=== PATIENT | female | born 1940 | race Caucasian/White ===

== ENCOUNTER 2017-06-13 09:11 | Emergency (ER) | payer MEDICARE | END 2017-06-13 09:41 | disposition home or self-care (01) | LOC: MADERS 09:11 | DX: H10.9 Unspecified conjunctivitis (principal); I10 Essential (primary) hypertension; Z79.899 Other long term (current) drug therapy | CPT/HCPCS: 99283 ==

== ENCOUNTER 2018-07-08 16:19 | Emergency (ER) | payer MEDICARE ==
--- NOTE | 2018-07-08 18:18 | RAD ---
CHEST TWO VIEWS: History: Cough. Comparison: 05-23-14 FINDINGS: Cardiac silhouette and pulmonary vasculature are unremarkable. Mediastinum is midline with aortic jason cification. No confluent airspace consolidation, pneumothorax or pleural fluid are evident. IMPRESSION: Atherosclerosis. No active cardiopulmonary abnormalities are otherwise demonstrated. POS: ANDREAH
== END 2018-07-08 18:13 | disposition home or self-care (01) ==
LOC: MADERS 16:19
DX: J02.9 Acute pharyngitis, unspecified (principal); I10 Essential (primary) hypertension; Z79.899 Other long term (current) drug therapy
CPT/HCPCS: 71046; 87081; 87430; 87804

== ENCOUNTER 2018-12-01 12:48 | Emergency (ER) | payer MEDICARE | END 2018-12-01 14:07 | disposition home or self-care (01) | LOC: MADERS 12:48 | DX: L03.115 Cellulitis of right lower limb (principal); I10 Essential (primary) hypertension; Z79.899 Other long term (current) drug therapy | CPT/HCPCS: 99282 ==

== ENCOUNTER 2019-03-08 07:32 | Emergency (ER) | payer MEDICARE | END 2019-03-08 08:25 | disposition home or self-care (01) | LOC: MADERS 07:32 | DX: S43.401A Unspecified sprain of right shoulder joint, initial encounter (principal); I10 Essential (primary) hypertension; X50.0XXA Overexertion from strenuous movement or load, initial encounter; Z79.899 Other long term (current) drug therapy | CPT/HCPCS: 99283 ==

== ENCOUNTER 2019-03-14 07:29 | Emergency (ER) | payer MEDICARE ==
[2019-03-14] MEDS ORDERED: Dexamethasone 4 MG TAB ONE (08:40)
[2019-03-14] MEDS ORDERED: Acyclovir 200 mg Capsule ONE (08:40)
== END 2019-03-14 09:02 | disposition home or self-care (01) ==
LOC: MADERS 07:29
DX: B02.9 Zoster without complications (principal); I10 Essential (primary) hypertension; Z79.899 Other long term (current) drug therapy
CPT/HCPCS: 99282; J8540

== ENCOUNTER 2019-07-02 10:29 | Emergency (ER) | payer MEDICARE | END 2019-07-02 12:00 | disposition home or self-care (01) | LOC: MADERS 10:29 | DX: B34.9 Viral infection, unspecified (principal); I10 Essential (primary) hypertension; Z79.899 Other long term (current) drug therapy | CPT/HCPCS: 87081; 87430; 87804; 99283 ==

== ENCOUNTER 2020-04-06 16:51 | Emergency (ER) | payer MEDICARE | END 2020-04-06 17:37 | disposition home or self-care (01) | LOC: MADERS 16:51 | DX: M79.672 Pain in left foot (principal); R20.8 Other disturbances of skin sensation; I10 Essential (primary) hypertension | CPT/HCPCS: 99283 ==

== ENCOUNTER 2020-08-21 11:09 | Emergency (ER) | payer MEDICARE | END 2020-08-21 11:43 | disposition home or self-care (01) | LOC: MADERS 11:09 | DX: L03.211 Cellulitis of face (principal); S00.11XA Contusion of right eyelid and periocular area, initial encounter; I10 Essential (primary) hypertension; Z79.899 Other long term (current) drug therapy; W19.XXXA Unspecified fall, initial encounter | CPT/HCPCS: 99283 ==

== ENCOUNTER 2020-11-12 15:59 | Emergency (ER) | payer MEDICARE ==
--- NOTE | 2020-11-12 17:18 | RAD ---
XR Chest Pa Lat STANDARD HISTORY: Cough and congestion COMPARISON: 07/08/2018 FINDINGS: The heart size is normal. The aorta is tortuous. The lungs are well expanded without focal areas of consolidation, pneumothorax or pleural effusions. There are degenerative changes in the spine. IMPRESSION: No radiographic evidence of acute cardiopulmonary process.
[2020-11-13 07:01] LABS: SARS-CoV-2 PCR by NAA DETECTED (NotDetected)
== END 2020-11-12 17:28 | disposition home or self-care (01) ==
LOC: MADERS 15:59
DX: U07.1 COVID-19 (principal); J12.82 Pneumonia due to coronavirus disease 2019; I10 Essential (primary) hypertension; Z79.899 Other long term (current) drug therapy
CPT/HCPCS: 71046; U0003; U0005; 87635

== ENCOUNTER 2021-05-31 11:34 | Emergency (ER) | payer MEDICARE | END 2021-05-31 12:15 | disposition home or self-care (01) | LOC: MADERS 11:34 | DX: K13.0 Diseases of lips (principal); Z79.899 Other long term (current) drug therapy; I10 Essential (primary) hypertension | CPT/HCPCS: 99283 ==

== ENCOUNTER 2021-07-21 10:01 | Emergency (ER) | payer MEDICARE ==
[2021-07-21] MEDS ORDERED: predniSONE 20 MG TAB ONE (12:34)
== END 2021-07-21 12:40 | disposition home or self-care (01) ==
LOC: MADERS 10:01
DX: J02.9 Acute pharyngitis, unspecified (principal); I10 Essential (primary) hypertension
CPT/HCPCS: 87081; 87430; 99283; J7512

== ENCOUNTER 2021-08-20 11:12 | Emergency (ER) | payer MEDICARE ==
[2021-08-20 21:47] LABS: SARS-CoV-2 PCR by NAA Not Detected (NotDetected)
== END 2021-08-20 12:09 | disposition home or self-care (01) ==
LOC: MADERS 11:12
DX: J06.9 Acute upper respiratory infection, unspecified (principal); I10 Essential (primary) hypertension; Z20.822 Contact with and (suspected) exposure to COVID-19; Z79.899 Other long term (current) drug therapy
CPT/HCPCS: 71045; 87804 ×2; U0003; U0005

== ENCOUNTER 2021-08-31 08:22 | Emergency (ER) | payer MEDICARE ==
[2021-09-01 10:48] LABS: SARS-CoV-2 PCR by NAA Not Detected (NotDetected)
== END 2021-08-31 09:00 | disposition home or self-care (01) ==
LOC: MADERS 08:22
DX: B34.9 Viral infection, unspecified (principal); I10 Essential (primary) hypertension
CPT/HCPCS: 87804; 99284; U0003; U0005

== ENCOUNTER 2022-06-21 09:15 | Emergency (ER) | payer MEDICARE | END 2022-06-21 09:56 | disposition home or self-care (01) | LOC: MADERS 09:15 | DX: J06.9 Acute upper respiratory infection, unspecified (principal); J32.9 Chronic sinusitis, unspecified; I10 Essential (primary) hypertension; M06.9 Rheumatoid arthritis, unspecified; Z20.822 Contact with and (suspected) exposure to COVID-19 | CPT/HCPCS: 99283; U0003; U0005 ==

== ENCOUNTER 2022-06-26 09:45 | Emergency (ER) | payer MEDICARE ==
[2022-06-26 10:23] LABS: Bilirubin Negative (Negative); Blood, Urine Small (Negative); Glucose, Urine (Dipstick) Negative (Negative); Ketone, Urine Negative (Negative); Leukocyte Negative (Negative); Nitrite Negative (Negative); Protein, Urine (Dipstick) Negative (Neg-Trace); Specific Gravity, Urine 1.015 (1.005-1.030); Urobilinogen 0.2 mg/dL (Less than 2)
[2022-06-26 10:24] LABS: Clarity Hazy (Clear)
[2022-06-26 10:31] LABS: Bacteria/HPF Rare-Few HPF (None Seen); Squamous Epithelial 0-3 HPF (0-3); WBC/HPF 0-3 HPF (0-3)
== END 2022-06-26 11:00 | disposition home or self-care (01) ==
LOC: MADERS 09:45
DX: R39.15 Urgency of urination (principal); I10 Essential (primary) hypertension; M06.9 Rheumatoid arthritis, unspecified
CPT/HCPCS: 81003; 81015; 87086; 99283

== ENCOUNTER 2022-07-27 19:51 | Emergency (ER) | payer MEDICARE ==
[2022-07-27] MEDS ORDERED: Acetaminophen 500 MG TAB ONE (21:07)
[2022-07-27] MEDS ORDERED: Dexamethasone 4 MG TAB ONE (21:33)
== END 2022-07-27 21:47 | disposition home or self-care (01) ==
LOC: MADERS 19:51
DX: J10.1 Influenza due to other identified influenza virus with other respiratory manifestations (principal); I10 Essential (primary) hypertension; Z79.899 Other long term (current) drug therapy
CPT/HCPCS: 71046; 87804; J8540

== ENCOUNTER 2023-04-10 14:15 | Emergency (ER) | payer MEDICARE, OTHER ==
[~2023-04-10 14:15] MED LIST: Sodium Chloride 0.9% 500 ML BAG ONE
[2023-04-10 16:44] LABS: #Basophils 0.1 thou/uL (0.0-0.2); #Eosinphils 0.1 thou/uL (0.0-0.7); #Lymphocytes 1.8 thou/uL (1.20-3.40); #Neutrophils 5.1 thou/uL (1.40-6.50); %Basophils 1.3 % (0.0-1.0); %Eosinophils 1.4 % (0.0-10.0); %Lymphocytes 22.2 % (21.0-51.0); %Monocytes 12.7 % (0.0-10.0); %Neutrophils 62.6 % (42.0-75.0); Hemoglobin 12.4 g/dL (12.0-16.0); Mean Corpuscular HGB CONC 32.8 g/dL (32.0-36.0); Mean Corpuscular Hemoglobin 29.4 pg (27.0-31.0); Mean Corpuscular Volume 89.9 fl (78.0-98.0); Mean Platelet Volume 8.2 fL (7.4-10.4); Platelet Count 521 10x3/uL (130-400); RBC Distribution Width 12.3 % (11.5-14.5); White Blood Cell (WBC) Count 8.1 10x3/uL (4.8-10.8)
[2023-04-10 16:59] LABS: ALT (SGPT) 14 U/L (8-55); AST (SGOT) 18 U/L (5-34); Albumin 4.4 g/dL (3.4-4.8); Alkaline Phosphatase 85 U/L (40-110); Anion Gap 18 mmol/L (10-20); BUN (Urea Nitrogen) 17 mg/dL (9.8-20.1); Bilirubin, Total 0.4 mg/dL (0.2-1.2); CK (CPK) 67 U/L (29-168); Calc. Creatinine Clearance 0 mL/min (70-130); Calcium 10.4 mg/dL (7.8-10.44); Carbon Dioxide 28 mmol/L (23-31); Chloride 95 mmol/L (98-107); Estimated GFR 60; Globulin 3.6 g/dL (2.4-3.5); Glucose 97 mg/dL (83-110); Potassium 3.7 mmol/L (3.5-5.1); Sodium 137 mmol/L (136-145)
== END 2023-04-10 17:48 | disposition home or self-care (01) ==
LOC: MADERS 14:15
DX: E86.0 Dehydration (principal); I10 Essential (primary) hypertension; Z79.899 Other long term (current) drug therapy
CPT/HCPCS: 80053; 82550; 83880; 85025; 96360; J7030

== ENCOUNTER 2023-08-09 14:16 | Emergency (ER) | payer MEDICARE, OTHER ==
[2023-08-09 15:01] LABS: Bilirubin Negative (Negative); Blood, Urine Small (Negative); Glucose, Urine (Dipstick) Negative (Negative); Ketone, Urine Negative (Negative); Leukocyte Trace (Negative); Nitrite Positive (Negative); Protein, Urine (Dipstick) Negative (Neg-Trace); Urobilinogen 0.2 mg/dL (Less than 2)
[2023-08-09 15:02] LABS: Clarity Hazy (Clear)
[2023-08-09 15:06] LABS: Bacteria/HPF 3+ HPF (None Seen); CAUTI Indications for Culture Dysuria,urgency,freq; RBC/HPF 0-3 HPF (0-3); Urine Culture Reflex Yes Yes
[2023-08-09] MEDS ORDERED: Lidocaine 1% PF 5 ML VIAL ONE (15:13)
[2023-08-09] MEDS ORDERED: cefTRIAXone (ROCEPHIN) 1 GM VIAL ONE (15:13)
== END 2023-08-09 15:32 | disposition home or self-care (01) ==
LOC: MADERS 14:16
DX: N39.0 Urinary tract infection, site not specified (principal); I10 Essential (primary) hypertension; Z79.899 Other long term (current) drug therapy
CPT/HCPCS: 81001; 87077; 87086; 87186; 96372; 99283; J0696

== ENCOUNTER 2023-10-28 10:31 | Emergency (ER) | payer MEDICARE, OTHER ==
[2023-10-28] MEDS ORDERED: Ondansetron PF 4 MG/2 ML Vial ONE (11:14)
[2023-10-28] MEDS ORDERED: Sodium Chloride 0.9% 1,000 ML ONE (11:16)
[2023-10-28 11:28] LABS: ALT (SGPT) 19 U/L (8-55); AST (SGOT) 20 U/L (5-34); Albumin 4.2 g/dL (3.4-4.8); Alkaline Phosphatase 83 U/L (40-110); Anion Gap 18 mmol/L (10-20); BUN (Urea Nitrogen) 30 mg/dL (9.8-20.1); Bilirubin, Total 0.4 mg/dL (0.2-1.2); Calc. Creatinine Clearance 0 mL/min (70-130); Calcium 9.9 mg/dL (7.8-10.44); Carbon Dioxide 26 mmol/L (23-31); Chloride 99 mmol/L (98-107); Estimated GFR 57; Globulin 3.8 g/dL (2.4-3.5); Glucose 100 mg/dL (83-110); Magnesium 1.6 mg/dL (1.6-2.6); Potassium 3.9 mmol/L (3.5-5.1); Sodium 139 mmol/L (136-145)
== END 2023-10-28 12:23 | disposition home or self-care (01) ==
LOC: MADERS 10:31
DX: E86.0 Dehydration (principal); R11.2 Nausea with vomiting, unspecified; I10 Essential (primary) hypertension; Z79.899 Other long term (current) drug therapy
CPT/HCPCS: 80053; 83735; 94760; 96361; 96374; J2405; J7050

== ENCOUNTER 2023-11-18 08:01 | Emergency (ER) | payer OTHER | END 2023-11-18 08:41 | disposition home or self-care (01) | LOC: MADERS 08:01 | DX: S52.571A Other intraarticular fracture of lower end of right radius, initial encounter for closed fracture (principal); I10 Essential (primary) hypertension; W23.1XXA Caught, crushed, jammed, or pinched between stationary objects, initial encounter; Z79.899 Other long term (current) drug therapy ==

== ENCOUNTER 2024-01-09 12:46 | Outpatient (CLI) | payer OTHER, SELFPAY | END 2024-01-09 12:47 | disposition home or self-care (01) | LOC: MADCT 12:46 | PROVIDERS: ATTEND Family Medicine | DX: M84.459A Pathological fracture, hip, unspecified, initial encounter for fracture (principal); Z91.81 History of falling; S72.142A Displaced intertrochanteric fracture of left femur, initial encounter for closed fracture ==

== ENCOUNTER 2024-02-16 13:36 | Outpatient (CLI) | payer OTHER, MEDICARE | END 2024-02-16 13:37 | disposition home or self-care (01) | LOC: MADRAD 13:36 | PROVIDERS: ATTEND Family Medicine | DX: M54.50 Low back pain, unspecified (principal); M47.816 Spondylosis without myelopathy or radiculopathy, lumbar region | CPT/HCPCS: 72100 ==